=== PATIENT | female | born 1990 | race American Indian/Alaskan Native ===

== ENCOUNTER 2018-06-14 07:13 | Emergency (ER) | payer SELFPAY ==
[2018-06-14 08:07] LABS: Bilirubin,Urine NEG (Negative); Blood,Urine LG (Negative); Color,Urine Red (Yellow); Urobilinogen,Urine < 2.0 mg/dL (<2.0)
[2018-06-14 08:09] LABS: RBC,Urine > 182.0 /HPF (0.0-6.0)
[2018-06-14 08:14] LABS: Basophils % (Auto) 0.7 % (0.0-1.8); Eosinophils # (Auto) 0.2 K/mm3 (0.0-0.4); Eosinophils % (Auto) 2.7 % (0.0-4.3); Hematocrit 35.8 % (30.3-42.9); Lymphocytes # (Auto) 1.9 K/mm3 (1.2-5.4); Lymphocytes % (Auto) 33.3 % (13.4-35.0); Mean Corpuscular HGB Conc 34 % (30-34); Mean Corpuscular Volume 90 fl (79-97); Monocytes # (Auto) 0.6 K/mm3 (0.0-0.8); Monocytes % (Auto) 10.4 % (0.0-7.3); Platelet Count 266 K/mm3 (140-440); Red Blood Count 3.99 M/mm3 (3.65-5.03); Red Cell Distribution Width 14.3 % (13.2-15.2)
[2018-06-14 08:18] LABS: Alanine Aminotransferase 12 units/L (7-56); Albumin 4.3 g/dL (3.9-5); BUN/Creatinine Ratio 15; Blood Urea Nitrogen 12 mg/dL (7-17); Calcium 8.8 mg/dL (8.4-10.2); Hemolysis Index 24
[2018-06-14] MEDS ORDERED: TORADOL IV ONE (09:17)
[2018-06-14] MEDS ORDERED: ZOFRAN IV ONE (09:17)
[2018-06-14] MEDS ORDERED: NACL 0.9% 1000 ML 1,000 ML IV ONE ×4 (09:17→14:03)
[2018-06-14] MEDS ORDERED: NACL 0.9% 1000 ML 1,000 ML ONE (09:19)
--- NOTE | 2018-06-14 09:21 | Emergency Department Report ---
ED General Adult HPI - General Chief complaint: Urogenital-Female Stated complaint: PAIN IN OVARIES DUE TO CYCLE Time Seen by Provider: 06/14/18 09:15 Source: patient Mode of arrival: Ambulatory Limitations: No Limitations - History of Present Illness Initial comments: Patient is 27 years old female with history of dysmenorrhea. Patient presented to the ER complaining of pelvic cramping since she started her cycle Yesterday. Patient is also complaining of nausea vomiting and watery diarrhea started yesterday also. Patient denied any fever or chills. No chest pain or shortness of breath. She denied any vaginal discharge. Patient initial blood pressure in triage is 88/42. Severity scale (0 -10): 9 - Related Data Allergies Allergy/AdvReac Type Severity Reaction Status Date / Time polyester fibers Allergy Itching Verified 06/14/18 07:20 ED Review of Systems ROS: Stated complaint: PAIN IN OVARIES DUE TO CYCLE Other details as noted in HPI Comment: All other systems reviewed and negative Constitutional: denies: chills, fever Respiratory: denies: cough, orthopnea, shortness of breath, SOB with exertion, SOB at rest, wheezing Cardiovascular: denies: chest pain, palpitations Gastrointestinal: abdominal pain, nausea, vomiting, diarrhea. denies: constipation, hematemesis, hematochezia Genitourinary: dysuria, abnormal menses. denies: frequency, hematuria Neurological: denies: headache, weakness, numbness, paresthesias, confusion ED Past Medical Hx - Past Medical History Previous Medical History?: Yes Additional medical history: tendonitis - Surgical History Past Surgical History?: Yes Additional Surgical History: swollen lymph noted removed from neck as a child - Social History Smoking Status: Never Smoker Substance Use Type: Marijuana ED Physical Exam - General Limitations: No Limitations General appearance: alert, in no apparent distress - Head Head exam: Present: atraumatic, normocephalic, normal inspection - Eye Eye exam: Present: normal appearance, PERRL - ENT ENT exam: Present: mucous membranes dry - Neck Neck exam: Present: normal inspection, full ROM. Absent: tenderness, meningismus, lymphadenopathy, thyromegaly - Respiratory Respiratory exam: Present: normal lung sounds bilaterally. Absent: respiratory distress, wheezes, rales, rhonchi, stridor, chest wall tenderness, accessory muscle use, decreased breath sounds, prolonged expiratory - Cardiovascular Cardiovascular Exam: Present: regular rate, normal rhythm, normal heart sounds - GI/Abdominal GI/Abdominal exam: Present: soft, normal bowel sounds. Absent: distended, tenderness, guarding, rebound, rigid, organomegaly, mass, bruit, pulsatile mass, hernia - Extremities Exam Extremities exam: Present: normal inspection, full ROM, normal capillary refill. Absent: pedal edema, calf tenderness - Back Exam Back exam: Present: normal inspection, full ROM. Absent: tenderness, CVA tenderness (R), CVA tenderness (L), muscle spasm, paraspinal tenderness, vertebral tenderness - Neurological Exam Neurological exam: Present: alert, oriented X3, CN II-XII intact, normal gait, reflexes normal - Skin Skin exam: Present: warm, intact, normal color ED Course Vital Signs 06/14/18 06/14/18 06/14/18 07:31 09:10 09:28 Temperature 98.4 F Pulse Rate 71 Respiratory 16 Rate Blood Pressure 91/57 94/50 Blood Pressure 95/54 [Right] O2 Sat by Pulse 100 Oximetry 06/14/18 06/14/18 06/14/18 09:30 09:40 09:45 Temperature Pulse Rate Respiratory 16 Rate Blood Pressure 90/49 90/49 Blood Pressure [Right] O2 Sat by Pulse 98 99 Oximetry 06/14/18 06/14/18 06/14/18 10:00 10:22 10:30 Temperature Pulse Rate Respiratory Rate Blood Pressure 100/62 100/62 98/61 Blood Pressure [Right] O2 Sat by Pulse 100 97 100 Oximetry 06/14/18 06/14/18 06/14/18 10:45 11:00 11:15 Temperature Pulse Rate Respiratory Rate Blood Pressure 98/61 105/66 105/66 Blood Pressure [Right] O2 Sat by Pulse 100 100 100 Oximetry 06/14/18 06/14/18 06/14/18 11:30 11:45 12:00 Temperature Pulse Rate Respiratory Rate Blood Pressure 97/55 92/52 92/52 Blood Pressure [Right] O2 Sat by Pulse 100 100 98 Oximetry 06/14/18 06/14/18 06/14/18 12:15 12:33 12:45 Temperature Pulse Rate Respiratory Rate Blood Pressure 84/47 92/52 92/52 Blood Pressure [Right] O2 Sat by Pulse 100 61 L 100 Oximetry ED Medical Decision Making - Lab Data Result diagrams: 06/14/18 07:44 06/14/18 07:44 - Medical Decision Making Patient is 27 years old female with history of dysmenorrhea. Patient presented to the ER complaining of pelvic cramping since she started her cycle Yesterday. Patient is also complaining of nausea vomiting and watery diarrhea started yesterday also. Patient denied any fever or chills. No chest pain or shortness of breath. She denied any vaginal discharge. Patient initial blood pressure in triage is 88/42. Patient received 3 liters of normal saline and her blood pressure still in the 93/56. I discussed the patient is Dr. Reyes, the patient to medical service for more fluids. Critical Care Time: Yes Critical care time in (mins) excluding proc time.: 30 Critical care attestation.: If time is entered above; I have spent that time in minutes in the direct care of this critically ill patient, excluding procedure time. ED Disposition Clinical Impression: Hypotension, Dysmenorrhea, Gastroenteritis Disposition: DC-09 OP ADMIT IP TO THIS HOSP Is pt being admited?: Yes Condition: Stable Referrals: RAJI SANCHEZ MD [Primary Care Provider] - 3-5 Days
[2018-06-14] MEDS ORDERED: MORPHINE ONE (10:27)
[2018-06-14] MEDS ORDERED: MORPHINE IV ONE (10:32)
--- NOTE | 2018-06-14 13:54 | Event Note ---
27 YO Female presents to ED for evaluation of pelvic cramping, and loose stools. Pt seen and evaluated in ED and found to have Volume depletion and diarrhea. Pt treated with supportive with improvement in symptoms. CT Abdomen/Pelvis unremarkable for acute findings. Pt medically optimized and back to usual state of health. Pt discharged home and instructed to f/u pcp 1wk, GI 1 wk for further care and evaluation. ED Physical Exam - General Limitations: No Limitations General appearance: alert, in no apparent distress - Head Head exam: Present: atraumatic, normocephalic, normal inspection - Eye Eye exam: Present: normal appearance, PERRL - ENT ENT exam: Present: mucous membranes moist - Neck Neck exam: Present: normal inspection, full ROM. Absent: tenderness, meningismus, lymphadenopathy, thyromegaly - Respiratory Respiratory exam: Present: normal lung sounds bilaterally. Absent: respiratory distress, wheezes, rales, rhonchi, stridor, chest wall tenderness, accessory muscle use, decreased breath sounds, prolonged expiratory - Cardiovascular Cardiovascular Exam: Present: regular rate, normal rhythm, normal heart sounds - GI/Abdominal GI/Abdominal exam: Present: soft, normal bowel sounds. Absent: distended, tenderness, guarding, rebound, rigid, organomegaly, mass, bruit, pulsatile mass, hernia - Extremities Exam Extremities exam: Present: normal inspection, full ROM, normal capillary refill. Absent: pedal edema, calf tenderness - Back Exam Back exam: Present: normal inspection, full ROM. Absent: tenderness, CVA tende rness (R), CVA tenderness (L), muscle spasm, paraspinal tenderness, vertebral tenderness - Neurological Exam Neurological exam: Present: alert, oriented X3, CN II-XII intact, normal gait, reflexes normal - Skin Skin exam: Present: warm, intact, normal color
--- NOTE | 2018-06-14 15:23 | Cat Scan Report ---
FINAL REPORT PROCEDURE: CT ABDOMEN PELVIS W CON TECHNIQUE: Computerized axial tomography of the abdomen and pelvis was performed after the IV inject ion of iodinated nonionic contrast. HISTORY: abdominal discomfort COMPARISON: No prior studies are available for comparison. FINDINGS: Visualized lower thorax: No significant abnormality. Liver: Normal size and attenuation. Spleen: Normal size and attenuation. Gallbladder and biliary system: Normal. Pancreas: Normal. Adrenals: Normal. Kidneys: Normal. GI tract: The appendix is visualized and does not appear inflamed. No bowel obstruction or inflammati on is seen. Lymph nodes and mesentery: Normal. Vasculature: Normal. Bladder: Normal. Reproductive organs: Grossly unremarkable. Peritoneum: There is small volume of fluid in the pelvis, which may be physiologic. Musculoskeletal structures: No significant abnormality. Other: None. IMPRESSION: No acute abnormality is identified
[2018-06-14 17:11] VITALS: BP 107/67
== END 2018-06-14 17:11 | disposition admitted as inpatient to this hospital (09) ==
LOC: ED 07:13
DX: I95.9 Hypotension, unspecified (principal); K52.9 Noninfective gastroenteritis and colitis, unspecified; N94.6 Dysmenorrhea, unspecified; Z88.8 Allergy status to other drugs, medicaments and biological substances
CPT/HCPCS: 36415; 74177; 80053; 81001; 82140; 84703; 85025; 87806; 96361; 96374; 96375; 99284; J1885; J2270; J2405; J7030; Q9967

== ENCOUNTER 2020-08-01 21:57 | Emergency (ER) | payer OTHER ==
[2020-08-01 22:42] VITALS: BP 116/49
[2020-08-02] MEDS ORDERED: KETOROLAC 30 MG/1 ML INJ IM ONE (00:09)
[2020-08-02] MEDS ORDERED: dexAMETHasone 20 MG/5 ML VIAL IM ONE (00:09)
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
[2020-08-02] MEDS ORDERED: ONDANSETRON 4 MG/2 ML INJ ONE (02:29)
[2020-08-02] MEDS ORDERED: ONDANSETRON 4 MG/2 ML INJ IM ONE (02:30)
== END 2020-08-02 02:15 ==
LOC: ED 21:57
DX: S39.012A Strain of muscle, fascia and tendon of lower back, initial encounter (principal); J45.909 Unspecified asthma, uncomplicated; Z79.899 Other long term (current) drug therapy; Z88.8 Allergy status to other drugs, medicaments and biological substances; Z98.890 Other specified postprocedural states; V49.88XA Car occupant (driver) (passenger) injured in other specified transport accidents, initial encounter; Y93.89 Activity, other specified; Y92.410 Unspecified street and highway as the place of occurrence of the external cause; Y99.8 Other external cause status
CPT/HCPCS: 72100; 96372; 99283; J1100; J1885; J2405